=== PATIENT | male | born 1985 | race Caucasian/White ===

== ENCOUNTER → 2021-07-12 13:43 | Outpatient (CLI) | payer OTHER, SELFPAY ==
[2021-07-12 15:33] LABS: Vitamin D,25 Hydroxy 32.6 ng/mL
[2021-07-12 15:41] LABS: Anion Gap 4 (5-15); BUN 15 mg/dL (7-18); BUN/Creat Ratio 15.2 RATIO (10-20); Calcium,Total 9.4 mg/dL (8.5-10.1); Chloride 104 mmol/L (98-107); Cholesterol 204 mg/dL (200); Creatinine, Serum 0.99 mg/dL (0.70-1.30); EST Glomerular Filtration Rate 90 mL/min (>60); Est Glom Filt Rate - Afr Amer 109 mL/min (>60); Glucose 97 mg/dL (74-106); High Density Lipoprotein 49 mg/dL; Sodium Level 137 mmol/L (136-145); Triglycerides 230 mg/dL; Very Low Density Lipoprotein 46 mg/dL (5-40)
== END ==
PROVIDERS: PCP Family Medicine; Referring Provider Family Medicine; Visit Provider Family Medicine
DX: Z00.00 Encounter for general adult medical examination without abnormal findings (principal); I10 Essential (primary) hypertension
CPT/HCPCS: 36415; 80048; 80061; 82306

== ENCOUNTER 2022-02-12 09:51 | Outpatient (CLI) | payer OTHER, SELFPAY ==
[2022-02-12 12:25] LABS: Anion Gap 5 (5-15); BUN 12 mg/dL (7-18); BUN/Creat Ratio 11.4 RATIO (10-20); Calcium,Total 8.9 mg/dL (8.5-10.1); Chloride 100 mmol/L (98-107); Cholesterol 228 mg/dL (200); Creatinine, Serum 1.05 mg/dL (0.70-1.30); EST Glomerular Filtration Rate 84 mL/min (>60); Est Glom Filt Rate - Afr Amer 101 mL/min (>60); Glucose 105 mg/dL (74-106); High Density Lipoprotein 54 mg/dL; Potassium 4.6 mmol/L (3.5-5.1); Sodium Level 133 mmol/L (136-145); Triglycerides 207 mg/dL; Very Low Density Lipoprotein 41 mg/dL (5-40)
== END 2022-02-12 23:59 | disposition home or self-care (01) ==
LOC: MFPLAB 09:52
PROVIDERS: PCP Family Medicine; Visit Provider Family Medicine
DX: I10 Essential (primary) hypertension (principal)
CPT/HCPCS: 36415; 80048; 80061

== ENCOUNTER → 2023-01-16 | Outpatient (CLI) | payer OTHER, SELFPAY ==
[2023-01-16 12:42] LABS: Anion Gap 8 (5-15); BUN 9 mg/dL (7-18); BUN/Creat Ratio 8.9 RATIO (10-20); Calcium,Total 9.3 mg/dL (8.5-10.1); Chloride 103 mmol/L (98-107); Cholesterol 222 mg/dL (200); Creatinine, Serum 1.01 mg/dL (0.70-1.30); EST Glomerular Filtration Rate 87 mL/min (>60); Est Glom Filt Rate - Afr Amer 105 mL/min (>60); Glucose 110 mg/dL (74-106); High Density Lipoprotein 49 mg/dL; Potassium 4.6 mmol/L (3.5-5.1); Sodium Level 139 mmol/L (136-145); Triglycerides 197 mg/dL; Very Low Density Lipoprotein 39 mg/dL (5-40)
== END | disposition home or self-care (01) ==
LOC: MFPLAB 09:27
PROVIDERS: PCP Family Medicine; Referring Provider Family Medicine; Visit Provider Family Medicine
DX: Z00.00 Encounter for general adult medical examination without abnormal findings (principal)
CPT/HCPCS: 36415; 80048; 80061

== ENCOUNTER → 2023-11-22 | Outpatient (CLI) | payer BC, SELFPAY ==
[2023-11-22 10:34] LABS: Anion Gap 7 (5-15); BUN 7 mg/dL (7-18); BUN/Creat Ratio 8.1 RATIO (10-20); Calcium,Total 9.2 mg/dL (8.5-10.1); Chloride 106 mmol/L (98-107); Cholesterol 249 mg/dL (200); Creatinine, Serum 0.87 mg/dL (0.70-1.30); EST Glomerular Filtration Rate 103 mL/min (>60); Est Glom Filt Rate - Afr Amer 125 mL/min (>60); Glucose 98 mg/dL (74-106); High Density Lipoprotein 63 mg/dL; Potassium 4.5 mmol/L (3.5-5.1); Sodium Level 139 mmol/L (136-145); Triglycerides 155 mg/dL; Very Low Density Lipoprotein 31 mg/dL (5-40)
== END | disposition home or self-care (01) ==
LOC: MFPLAB 09:19
PROVIDERS: PCP Family Medicine; Visit Provider Family Medicine
DX: I10 Essential (primary) hypertension (principal)
CPT/HCPCS: 36415; 80048; 80061

== ENCOUNTER → 2024-03-17 | Outpatient (CLI) | payer BC, SELFPAY ==
[2024-03-17 10:49] LABS: Cholesterol 225 mg/dL (200); High Density Lipoprotein 54 mg/dL; Triglycerides 147 mg/dL; Very Low Density Lipoprotein 29 mg/dL (5-40)
== END | disposition home or self-care (01) ==
LOC: MFPLAB 08:59
PROVIDERS: PCP Family Medicine; Visit Provider Family Medicine
DX: E78.00 Pure hypercholesterolemia, unspecified (principal)
CPT/HCPCS: 36415; 80061

== ENCOUNTER → 2024-09-14 | Outpatient (CLI) | payer BC, SELFPAY ==
[2024-09-14 10:37] LABS: ALB/GLOB Ratio 1.1 RATIO (0.9-2.4); AST(SGOT) 57 U/L (15-37); Alanine Aminotransfer ALT/SGPT 62 U/L (16-61); Alkaline Phosphatase 63 U/L (45-117); Anion Gap 5 (5-15); BUN 10 mg/dL (7-18); BUN/Creat Ratio 10.7 RATIO (10-20); Chloride 106 mmol/L (98-107); Cholesterol 183 mg/dL (200); Creatinine, Serum 0.93 mg/dL (0.70-1.30); EST Glomerular Filtration Rate 95 mL/min (>60); Est Glom Filt Rate - Afr Amer 115 mL/min (>60); Globulin 3.6 g/dL (2.2-4.2); Glucose 98 mg/dL (74-106); High Density Lipoprotein 60 mg/dL; Potassium 4.2 mmol/L (3.5-5.1); Protein, Total 7.6 g/dL (6.4-8.2); Sodium Level 138 mmol/L (136-145); Triglycerides 340 mg/dL; Very Low Density Lipoprotein 68 mg/dL (5-40)
== END | disposition home or self-care (01) ==
LOC: MFPLAB 09:13
PROVIDERS: PCP Family Medicine; Visit Provider Family Medicine
DX: I10 Essential (primary) hypertension (principal)
CPT/HCPCS: 36415; 80053; 80061

== ENCOUNTER → 2025-03-25 | Outpatient (CLI) | payer BC, SELFPAY ==
[2025-03-25 10:58] LABS: ALB/GLOB Ratio 1.8 RATIO (0.9-2.4); AST(SGOT) 55 U/L (<=37); Alanine Aminotransfer ALT/SGPT 59 U/L (<=46); Albumin, Serum 4.9 g/dL (3.5-5.0); Alkaline Phosphatase 55 U/L (40-129); Anion Gap 14 (5-15); BUN 8 mg/dL (4-19); BUN/Creat Ratio 10.4 RATIO (10-20); Calcium,Total 9.7 mg/dL (7.6-11.0); Carbon Dioxide 22.9 mmol/L (21.0-32.0); Chloride 102 mmol/L (98-108); Cholesterol 188 mg/dL (<=200); Creatinine, Serum 0.79 mg/dL (0.70-1.20); EST Glomerular Filtration Rate 114 (>60); Globulin 2.7 g/dL (2.2-4.2); Glucose 99 mg/dL (70-99); High Density Lipoprotein 76 mg/dL; Low Density Lipoprotein Calc. 100 mg/dL; Potassium 4.5 mmol/L (3.3-5.1); Protein, Total 7.6 g/dL (5.9-8.4); Sodium Level 138 mmol/L (133-145); Total Bilirubin 0.86 mg/dL (0.00-1.30); Triglycerides 60 mg/dL; Very Low Density Lipoprotein 12 mg/dL (5-40); cholesterol:hdl ratio screen 2.46
== END | disposition home or self-care (01) ==
LOC: MFPLAB 08:58
PROVIDERS: PCP Family Medicine; Referring Provider Family Medicine; Visit Provider Family Medicine
DX: I10 Essential (primary) hypertension (principal)
CPT/HCPCS: 36415; 80053; 80061

== ENCOUNTER 2025-05-11 07:27 | Day surgery (SDC) | payer BC, SELFPAY ==
[2025-05-11] VITALS (9 sets, daily range): BP systolic 100–120; BP diastolic 74–94; PULSE 88–101; RESP 16–18; TEMP 36.4–36.6; O2SAT 94–99; BMI 28.9
[2025-05-11] MEDS: Lactated Ringers 1,000 ML 15 ML IV (08:03)
--- NOTE | 2025-05-11 08:30 | PCM.HP.BLA ---
History and Physical Date of Admission: 05/11/25 Intake Vital Signs 04/27/2514:40 Height 5 ft 11 in Weight: 211 lb BMI 29.4 BP 141/92 H Blood Pressure Location Rt brachial Position Sitting Respiration 18 Intake Visit Reasons: EGD F/U- dysphagia Chief Complaint: f/u EGD Electroencephalograph Technologist Required: No Is patient in pain?: Yes (Right middle finger) Allergies No Known Allergies Allergy (Verified 04/27/25 14:41) Medications ?Medication ?Instructions ?Recorded ?Confirmed ?Type losartan 100 mg tablet 100 mg PO DAILY 04/11/25 04/27/25 History rosuvastatin 5 mg tablet (Crestor) 5 mg PO DAILY 04/11/25 04/27/25 History omeprazole 20 mg tablet,delayed 20 mg PO QDAY #60 tabs 04/27/25 04/27/25 Rx release pantoprazole 40 mg tablet,delayed 40 mg PO QDAY #60 tabs 04/28/25 04/28/25 Rx release Have you fallen in the past year?: No PFSH Medical History (Updated 04/28/25 @ 13:07 by Fanny Newman) GERD (gastroesophageal reflux disease) Hypercholesterolemia Hypertension Surgical History History of removal of cyst History of wisdom tooth extraction S/P anal fissurectomy Social History Smoking Status: Never smoker HPI HPI HPI: Patient is a 40-year-old male who was recently seen for food stuck in his esophagus. The patient reports that since having his EGD he had more food has been getting stuck Exam Const General: cooperative Orientation: alert and oriented x3 HENMT Head: normal to inspection Neck Neck: normal visual inspection and full ROM Chest Chest palpation & inspection: normal inspection of the chest Resp Effort & Inspection: normal respiratory effort Auscultation: clear to auscultation bilaterally Cardio Rate: regular rate Rhythm: regular rhythm GI Inspection: non-distended Palpation: soft and nontender Skin General: no rashes or lesions noted Neuro General: patient alert and patient oriented x3 Extrem General: full ROM Psych Appearance: grossly normal Mental Status: mental status grossly normal Assessment and Plan Assessment and Plan (1) Esophageal obstruction due to food impaction: Status: Acute Plan: The patient had esophageal obstruction due to food. He did have a stricture but I was unable to dilate it during the initial EGD. I discussed performing repeat EGD with dilation. I discussed the increased risk of perforation and bleeding with dilation. I explained endoscopy in detail to the patient. I explained the risks including but not limited to stroke or heart attack with anesthesia, perforation of the GI tract, bleeding, infection. I explained that any of these could necessitate further emergency surgery. The patient understands and all questions were answered sufficiently. The patient wishes to proceed with procedure. Herber Don MD Pager: [facility] [address] [place] [address], [address] [place] [address] Office: I have examined the patient and the H&P has been reviewed. There are no clinical changes since date of exam.
--- NOTE | 2025-05-11 08:30 | PCM.HP.BLA ---
History and Physical Date of Admission: 05/11/25 Intake Vital Signs 04/27/2514:40 Height 5 ft 11 in Weight: 211 lb BMI 29.4 BP 141/92 H Blood Pressure Location Rt brachial Position Sitting Respiration 18 Intake Visit Reasons: EGD F/U- dysphagia Chief Complaint: f/u EGD Drupal Web Developer Required: No Is patient in pain?: Yes (Right middle finger) Allergies No Known Allergies Allergy (Verified 04/27/25 14:41) Medications ?Medication ?Instructions ?Recorded ?Confirmed ?Type losartan 100 mg tablet 100 mg PO DAILY 04/11/25 04/27/25 History rosuvastatin 5 mg tablet (Crestor) 5 mg PO DAILY 04/11/25 04/27/25 History omeprazole 20 mg tablet,delayed 20 mg PO QDAY #60 tabs 04/27/25 04/27/25 Rx release pantoprazole 40 mg tablet,delayed 40 mg PO QDAY #60 tabs 04/28/25 04/28/25 Rx release Have you fallen in the past year?: No PFSH Medical History (Updated 04/28/25 @ 13:07 by Fanny Newman) GERD (gastroesophageal reflux disease) Hypercholesterolemia Hypertension Surgical History History of removal of cyst History of wisdom tooth extraction S/P anal fissurectomy Social History Smoking Status: Never smoker HPI HPI HPI: Patient is a 40-year-old male who was recently seen for food stuck in his esophagus. The patient reports that since having his EGD he had more food has been getting stuck Exam Const General: cooperative Orientation: alert and oriented x3 HENMT Head: normal to inspection Neck Neck: normal visual inspection and full ROM Chest Chest palpation & inspection: normal inspection of the chest Resp Effort & Inspection: normal respiratory effort Auscultation: clear to auscultation bilaterally Cardio Rate: regular rate Rhythm: regular rhythm GI Inspection: non-distended Palpation: soft and nontender Skin General: no rashes or lesions noted Neuro General: patient alert and patient oriented x3 Extrem General: full ROM Psych Appearance: grossly normal Mental Status: mental status grossly normal Assessment and Plan Assessment and Plan (1) Esophageal obstruction due to food impaction: Status: Acute Plan: The patient had esophageal obstruction due to food. He did have a stricture but I was unable to dilate it during the initial EGD. I discussed performing repeat EGD with dilation. I discussed the increased risk of perforation and bleeding with dilation. I explained endoscopy in detail to the patient. I explained the risks including but not limited to stroke or heart attack with anesthesia, perforation of the GI tract, bleeding, infection. I explained that any of these could necessitate further emergency surgery. The patient understands and all questions were answered sufficiently. The patient wishes to proceed with procedure. Herber Don MD Pager: [facility] [address] [place] [address], [address] [place] [address] Office: I have examined the patient and the H&P has been reviewed. There are no clinical changes since date of exam.
--- NOTE | 2025-05-11 08:40 | PCM.PRE.AN2 ---
ASA Classification* ASA Classification ASA Classification: 2 Assessment & Plan Anesthesia* Anesthesia Assessment Anesthesia Assessment: Discussed sedation and/or anesthesia options, risks, benefits, and alternatives with patient/parents/legal guardian/POA. Questions invited. The patient/parents/legal guardian/POA seems to understand and agrees to proceed with anesthesia plan. Reviewed the physical assessment, medical history, allergy history and patient home medications list prior to surgery/procedure/anesthetic and documented any changes. Performed airway and anesthesia risk assessments. Anesthesia Type Anesthesia Type: MAC History Source History Obtained from:: Patient and Chart Anesthesia Focused Assessment* Temperature: 97.8 F Pulse Rate: 88 Blood Pressure: 119/79 Respiratory Rate: 17 Pulse Ox: 99 Airway Assessment Mouth opens: >3 cm Mallampati Score: I Teeth Condition: Caps/Crowns ([place] right lower molar. 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 When Was Last Pacemaker Check QUESTION #4 FULL TEXT: You/Your Family Experience fever (hyperthermia) with Anesthesia Last Oral Intake Last Oral intake: Last Oral Intake NPO since 00:00 05/11/25 07:54 Meds taken in AM with sips of No 05/11/25 07:54 water? 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 - developmental writing instructor: PONV - developmental writing instructor Female No 05/10/25 08:20 HX of Motion Sickness No 05/10/25 08:20 HX of N/V After Surgery No 05/10/25 08:20 Non-Smoker Yes 05/10/25 08:20 Duration of Surgery greater No 05/10/25 08:20 than 60 minutes Number of Risk Factors 1 05/10/25 08:20 PONV Score Low Risk 05/10/25 08:20 Height & Weight Height & Weight: Anesthesia: Height & Weight Height 5 ft 11 in 05/11/25 07:54 Weight: 94 kg 05/11/25 07:54 Body Mass Index (BMI) 28.9 05/11/25 07:54 Respiratory Assessment Respiratory Assessment - developmental writing instructor: Respiratory Tract Infection Hx - developmental writing instructor Hx Respiratory Tract Infection No 05/10/25 08:20 STOP Sleep Apnea STOP Sleep Apnea - developmental writing instructor: STOP Sleep Apnea - developmental writing instructor Hx Hypertension Yes 05/10/25 08:20 Hx Sleep Apnea Yes 05/10/25 08:20 CPAP No: UNABLE TO TOLERATE MASK 05/10/25 08:20 BIPAP No 05/10/25 08:20 Do you snore loudly (louder Yes 05/10/25 08:20 than talking or can be heard Do you often feel tired/ No 05/10/25 08:20 fatigued/ sleepy during daytime? Has anyone observed you stop No 05/10/25 08:20 breathing during sleep? STOP Results Positive 05/10/25 08:20 QUESTION #5 FULL TEXT : Do you snore loudly (louder than talking or can be heard through closed doors)? 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 Specify any problems Hx of Preganancy in last 3 N/A 05/10/25 08:20 Months Nurse Filling Out Transfusion EHMILL HALL 05/10/25 08:20 & Questions: Date: 05/10/25 05/10/25 08:20 Time: 05/10/25 08:20 Patient unable to answer at this time (ie. confused, unrespo /Reproduction History /Reproductive History - developmental writing instructor: /Reproductive Hx- developmental writing instructor Hx Now Gestational Age (in weeks): EDC: Hx Hx Para Hx Section SAB No 04/11/25 22:26 Active Medications Active Medications: Current Medications Generic Name Dose Route Start Last Admin Trade Name Freq PRN Reason Stop Dose Admin Lactated Ringer's 1,000 mls @ 15 mls/hr 05/11/25 07:45 05/11/25 08:03 IV 15 mls/hr .Q48H BJ Administration PFSH Medical History Sleep apnea High cholesterol Migraine headache Difficulty swallowing Gastric reflux Former smoker History of stress test GERD (gastroesophageal reflux disease) Hypercholesterolemia Hypertension Home Medications ?Medication ?Instructions ?Recorded ?Last Taken ?Type losartan 100 mg tablet 100 mg PO DAILY 04/11/25 05/10/25 History rosuvastatin 5 mg tablet (Crestor) 5 mg PO DAILY 04/11/25 05/10/25 History pantoprazole 40 mg tablet,delayed 40 mg PO QDAY #30 tabs 05/10/25 Unknown Rx release Allergy/AdvReac Type Severity Reaction Status Date / Time No Known Allergies Allergy Verified 05/11/25 07:53 Surgical History History of removal of cyst History of wisdom tooth extraction S/P anal fissurectomy Social History Smoking Status: Former smoker Review of Systems (Anesthesia) ROS Narrative System reviewed and no additional complaints, except as documented.
--- NOTE | 2025-05-11 08:40 | PCM.PRE.AN2 ---
ASA Classification* ASA Classification ASA Classification: 2 Assessment & Plan Anesthesia* Anesthesia Assessment Anesthesia Assessment: Discussed sedation and/or anesthesia options, risks, benefits, and alternatives with patient/parents/legal guardian/POA. Questions invited. The patient/parents/legal guardian/POA seems to understand and agrees to proceed with anesthesia plan. Reviewed the physical assessment, medical history, allergy history and patient home medications list prior to surgery/procedure/anesthetic and documented any changes. Performed airway and anesthesia risk assessments. Anesthesia Type Anesthesia Type: MAC History Source History Obtained from:: Patient and Chart Anesthesia Focused Assessment* Temperature: 97.8 F Pulse Rate: 88 Blood Pressure: 119/79 Respiratory Rate: 17 Pulse Ox: 99 Airway Assessment Mouth opens: >3 cm Mallampati Score: I Teeth Condition: Caps/Crowns ([place] right lower molar. 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 When Was Last Pacemaker Check QUESTION #4 FULL TEXT: You/Your Family Experience fever (hyperthermia) with Anesthesia Last Oral Intake Last Oral intake: Last Oral Intake NPO since 00:00 05/11/25 07:54 Meds taken in AM with sips of No 05/11/25 07:54 water? 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 Female No 05/10/25 08:20 HX of Motion Sickness No 05/10/25 08:20 HX of N/V After Surgery No 05/10/25 08:20 Non-Smoker Yes 05/10/25 08:20 Duration of Surgery greater No 05/10/25 08:20 than 60 minutes Number of Risk Factors 1 05/10/25 08:20 PONV Score Low Risk 05/10/25 08:20 Height & Weight Height & Weight: Anesthesia: Height & Weight Height 5 ft 11 in 05/11/25 07:54 Weight: 94 kg 05/11/25 07:54 Body Mass Index (BMI) 28.9 05/11/25 07:54 Respiratory Assessment Respiratory Assessment - canvas products sales representative: Respiratory Tract Infection Hx - canvas products sales representative Hx Respiratory Tract Infection No 05/10/25 08:20 STOP Sleep Apnea STOP Sleep Apnea - canvas products sales representative: STOP Sleep Apnea - canvas products sales representative Hx Hypertension Yes 05/10/25 08:20 Hx Sleep Apnea Yes 05/10/25 08:20 CPAP No: UNABLE TO TOLERATE MASK 05/10/25 08:20 BIPAP No 05/10/25 08:20 Do you snore loudly (louder Yes 05/10/25 08:20 than talking or can be heard Do you often feel tired/ No 05/10/25 08:20 fatigued/ sleepy during daytime? Has anyone observed you stop No 05/10/25 08:20 breathing during sleep? STOP Results Positive 05/10/25 08:20 QUESTION #5 FULL TEXT : Do you snore loudly (louder than talking or can be heard through closed doors)? 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 Specify any problems Hx of Preganancy in last 3 N/A 05/10/25 08:20 Months Nurse Filling Out Transfusion EHSTEINAUER 05/10/25 08:20 & Questions: Date: 05/10/25 05/10/25 08:20 Time: 05/10/25 08:20 Patient unable to answer at this time (ie. confused, unrespo /Reproduction History /Reproductive History - canvas products sales representative: /Reproductive Hx- canvas products sales representative Hx Now Gestational Age (in weeks): EDC: Hx Hx Para Hx Section SAB No 04/11/25 22:26 Active Medications Active Medications: Current Medications Generic Name Dose Route Start Last Admin Trade Name Freq PRN Reason Stop Dose Admin Lactated Ringer's 1,000 mls @ 15 mls/hr 05/11/25 07:45 05/11/25 08:03 IV 15 mls/hr .Q48H BJ Administration PFSH Medical History Sleep apnea High cholesterol Migraine headache Difficulty swallowing Gastric reflux Former smoker History of stress test GERD (gastroesophageal reflux disease) Hypercholesterolemia Hypertension Home Medications ?Medication ?Instructions ?Recorded ?Last Taken ?Type losartan 100 mg tablet 100 mg PO DAILY 04/11/25 05/10/25 History rosuvastatin 5 mg tablet (Crestor) 5 mg PO DAILY 04/11/25 05/10/25 History pantoprazole 40 mg tablet,delayed 40 mg PO QDAY #30 tabs 05/10/25 Unknown Rx release Allergy/AdvReac Type Severity Reaction Status Date / Time No Known Allergies Allergy Verified 05/11/25 07:53 Surgical History History of removal of cyst History of wisdom tooth extraction S/P anal fissurectomy Social History Smoking Status: Former smoker Review of Systems (Anesthesia) ROS Narrative System reviewed and no additional complaints, except as documented.
--- NOTE | 2025-05-11 09:04 | OP.EGD_ITS ---
Patient Name: Davis Crandall Procedure Date: 05/11/2025 8:40 AM Date of : 1985 Age: 40 Procedure: Upper GI endoscopy Indications: Dysphagia Providers: Herber Don MD Referring MD: Don Sumner MD Medicines: Propofol per Anesthesia Patient Profile: This is a 40 year old male. Refer to note in patient chart for documentation of history and physical. Complications: No immediate complications. Estimated blood loss: Minimal. Procedure: Pre-Anesthesia Assessment: - Prior to the procedure, a History and Physical was performed, and patient medications and allergies were reviewed. The patient's tolerance of previous anesthesia was also reviewed. The risks and benefits of the procedure and the sedation options and risks were discussed with the patient. All questions were answered, and informed consent was obtained. Prior Anticoagulants: The patient has taken no anticoagulant or antiplatelet agents. After reviewing the risks and benefits, the patient was deemed in satisfactory condition to undergo the procedure. After obtaining informed consent, the endoscope was passed under direct vision. Throughout the procedure, the patient's blood pressure, pulse, and oxygen saturations were monitored continuously. The Endoscope was introduced through the mouth, and advanced to the fourth part of duodenum. The upper GI endoscopy was accomplished without difficulty. The patient tolerated the procedure well. Scope In: 8:53:33 AM Scope Out: 8:58:43 AM Total Procedure Duration Time 0 hours 5 minutes 10 seconds Findings: One benign-appearing, intrinsic mild stenosis was found at the gastroesophageal junction. The stenosis was traversed. A TTS dilator was passed through the scope. Dilation with a 15-16.5-18 mm balloon dilator was performed to 18 mm. The dilation site was examined following endoscope reinsertion and showed moderate improvement in luminal narrowing. Estimated blood loss was minimal. The stomach was normal. The examined duodenum was normal. Impression: - Benign-appearing esophageal stenosis. Dilated. - Normal stomach. - Normal examined duodenum. - No specimens collected. Recommendation: - Discharge patient to home. - Resume previous diet. - Continue present medications. Procedure Code(s): --- Professional --- 24289, Esophagogastroduodenoscopy, flexible, transoral; with transendoscopic balloon dilation of esophagus (less than 30 mm diameter) Diagnosis Code(s): --- Professional --- R13.10, Dysphagia, unspecified CPT copyright 2021 [employer]. All rights reserved. The codes documented in this report are preliminary and upon plastic process technician review may be revised to meet current compliance requirements. Herber Don MD 05/11/2025 9:04:34 AM This report has been signed electronically. Number of Addenda: 0 Note Initiated On: 05/11/2025 8:40 AM
--- NOTE | 2025-05-11 09:04 | OP.EGD_ITS ---
Patient Name: Davis Crandall Procedure Date: 05/11/2025 8:40 AM Date of : 1985 Age: 40 Procedure: Upper GI endoscopy Indications: Dysphagia Providers: Herber Don MD Referring MD: Don Sumner MD Medicines: Propofol per Anesthesia Patient Profile: This is a 40 year old male. Refer to note in patient chart for documentation of history and physical. Complications: No immediate complications. Estimated blood loss: Minimal. Procedure: Pre-Anesthesia Assessment: - Prior to the procedure, a History and Physical was performed, and patient medications and allergies were reviewed. The patient's tolerance of previous anesthesia was also reviewed. The risks and benefits of the procedure and the sedation options and risks were discussed with the patient. All questions were answered, and informed consent was obtained. Prior Anticoagulants: The patient has taken no anticoagulant or antiplatelet agents. After reviewing the risks and benefits, the patient was deemed in satisfactory condition to undergo the procedure. After obtaining informed consent, the endoscope was passed under direct vision. Throughout the procedure, the patient's blood pressure, pulse, and oxygen saturations were monitored continuously. The Endoscope was introduced through the mouth, and advanced to the fourth part of duodenum. The upper GI endoscopy was accomplished without difficulty. The patient tolerated the procedure well. Scope In: 8:53:33 AM Scope Out: 8:58:43 AM Total Procedure Duration Time 0 hours 5 minutes 10 seconds Findings: One benign-appearing, intrinsic mild stenosis was found at the gastroesophageal junction. The stenosis was traversed. A TTS dilator was passed through the scope. Dilation with a 15-16.5-18 mm balloon dilator was performed to 18 mm. The dilation site was examined following endoscope reinsertion and showed moderate improvement in luminal narrowing. Estimated blood loss was minimal. The stomach was normal. The examined duodenum was normal. Impression: - Benign-appearing esophageal stenosis. Dilated. - Normal stomach. - Normal examined duodenum. - No specimens collected. Recommendation: - Discharge patient to home. - Resume previous diet. - Continue present medications. Procedure Code(s): --- Professional --- 15653, Esophagogastroduodenoscopy, flexible, transoral; with transendoscopic balloon dilation of esophagus (less than 30 mm diameter) Diagnosis Code(s): --- Professional --- R13.10, Dysphagia, unspecified CPT copyright 2021 [employer]. All rights reserved. The codes documented in this report are preliminary and upon manager lean review may be revised to meet current compliance requirements. Herber Don MD 05/11/2025 9:04:34 AM This report has been signed electronically. Number of Addenda: 0 Note Initiated On: 05/11/2025 8:40 AM
--- NOTE | 2025-05-11 09:05 | OP.CCLET_ITS ---
05/11/2025 Don Sumner MD [address] [phone] Re : Upper GI endoscopy procedure for Davis Martinbo Dear Dr. Sumner This procedure was performed on Sunday, May 11, 2025. My impressions and recommendations are as follows: Impressions : - Benign-appearing esophageal stenosis. Dilated. - Normal stomach. - Normal examined duodenum. - No specimens collected. Recommendations : - Discharge patient to home. - Resume previous diet. - Continue present medications. My findings are described in the full procedure note, which is enclosed. If I can be of further assistance, please feel free to contact me at Doctor phone number(s): , Work: . Sincerely, Herber Don MD 05/11/2025 9:04:34 AM This report has been signed electronically.
--- NOTE | 2025-05-11 09:05 | OP.CCLET_ITS ---
05/11/2025 Don Sumner MD [address] [phone] Re : Upper GI endoscopy procedure for Davis Martinbo Dear Dr. Sumner This procedure was performed on Sunday, May 11, 2025. My impressions and recommendations are as follows: Impressions : - Benign-appearing esophageal stenosis. Dilated. - Normal stomach. - Normal examined duodenum. - No specimens collected. Recommendations : - Discharge patient to home. - Resume previous diet. - Continue present medications. My findings are described in the full procedure note, which is enclosed. If I can be of further assistance, please feel free to contact me at Doctor phone number(s): , Work: . Sincerely, Herber Don MD 05/11/2025 9:04:34 AM This report has been signed electronically.
--- NOTE | 2025-05-11 09:07 | PCM.POST.ANE ---
Anesthesia: Postop Eval I Current Vital Signs Temperature: 97.8 F Pulse Rate: 100 Blood Pressure: 120/94 Respiratory Rate: 16 Pulse Ox: 97 Oxygen Delivery Method: Room Air Assessment Airway patent: Yes Spontaneous unlabored respirations: Yes Mental status: Asleep nausea: No Vomiting: No Anesthesia Complication: No Fluid Hydration Crystalloid volume administer (ml): 300 Total IV fluid infused: 300 Progress Note Anesthesia document: Postop Eval 1 completed: Yes
--- NOTE | 2025-05-11 10:17 | PCM.POSTANE2 ---
Anesthesia Postop Eval I Sum Postop Eval Completion status Anesthesia document: Postop Eval 1 completed: Yes Anesthesia Postop Eval I Summary Anesthesia Postop Eval I Summary: Anesthesia Postop Eval I: Assessment Summary Airway patent Yes 05/11/25 09:08 [email or web address] Spontaneous unlabored Yes 05/11/25 09:08 [email or web address] respirations Mental status Asleep 05/11/25 09:08 [email or web address] nausea No 05/11/25 09:08 [email or web address] Vomiting No 05/11/25 09:08 [email or web address] Anesthesia Postop Eval I: Fluid Summary Crystalloid volume administer 300 05/11/25 09:08 [email or web address] (ml) Colloids volume administered ( ml) Blood Product volume administered (ml) Total IV fluid infused 300 05/11/25 09:08 [email or web address] Anesthesia Postop Eval I: Summary Notes Anesthesia Complication No 05/11/25 09:08 [email or web address] Anesthesia Complication Comment: Post-operative progress note Anesthesia: Postop Eval II Evaluation Mental status: Awake and Calm Pain Level: 0 nausea: No Vomiting: No Complications Anesthesia Complication: No
== END 2025-05-11 09:38 | disposition home or self-care (01) ==
LOC: EN 07:27 → AC 07:31
PROVIDERS: PCP Family Medicine; Referring Provider Family Medicine; Visit Provider Surgery
PROC: 0DJ08ZZ Inspection of Upper Intestinal Tract, Via Natural or Artificial Opening Endoscopic (ICD-10-PCS; CPT 43235; principal; 2025-05-11 08:25)
DX: K22.2 Esophageal obstruction (principal); R13.10 Dysphagia, unspecified; K21.9 Gastro-esophageal reflux disease without esophagitis; I10 Essential (primary) hypertension; E78.00 Pure hypercholesterolemia, unspecified; Z79.899 Other long term (current) drug therapy
CPT/HCPCS: 43249; J2405

== ENCOUNTER → 2025-09-16 | Outpatient (CLI) | payer BC, SELFPAY ==
[2025-09-16 12:41] LABS: AST(SGOT) 69 U/L (<=37); Alanine Aminotransfer ALT/SGPT 80 U/L (<=46); Albumin, Serum 4.7 g/dL (3.5-5.0); Alkaline Phosphatase 81 U/L (40-129); Anion Gap 15 (5-15); BUN 7 mg/dL (4-19); BUN/Creat Ratio 9.7 RATIO (10-20); Calcium,Total 9.5 mg/dL (7.6-11.0); Carbon Dioxide 23.5 mmol/L (21.0-32.0); Chloride 102 mmol/L (98-108); Cholesterol 198 mg/dL (<=200); Globulin 3.0 g/dL (2.2-4.2); Glucose 84 mg/dL (70-99); Low Density Lipoprotein Calc. 107 mg/dL; Potassium 4.7 mmol/L (3.3-5.1); Triglycerides 166 mg/dL; Very Low Density Lipoprotein 33 mg/dL (5-40); cholesterol:hdl ratio screen 3.19
== END | disposition home or self-care (01) ==
LOC: MFPLAB 10:20
PROVIDERS: PCP Family Medicine; Referring Provider Family Medicine; Visit Provider Family Medicine
DX: I10 Essential (primary) hypertension (principal)
CPT/HCPCS: 36415; 80053; 80061